=== PATIENT | male | born 1955 | race Hispanic/Latino ===

== ENCOUNTER 2022-12-04 10:57 | Emergency (ER) | payer OTHER ==
[~2022-12-04] VITALS: Ht 180.3 cm; Wt 104.3 kg
[2022-12-04 11:17] LABS: CREATININE 0.8 mg/dL (0.5-1.5)
[2022-12-04 11:18] LABS: BASOPHILS % (AUTO) 0.9 % (0.0-5.0); EOSINOPHILS % (AUTO) 3.1 % (0.0-8.0); HEMATOCRIT 42.6 % (42-54); LYMPHOCYTES % (AUTO) 31.7 % (21.0-51.0); MEAN CORPUSCULAR HEMOGLOBIN 29.8 pg (27.0-33.0); MEAN CORPUSCULAR HGB CONC 33.3 g/dL (32.0-36.0); MEAN CORPUSCULAR VOLUME 89.3 fL (79-99); MONOCYTES % (AUTO) 10.3 % (3.0-13.0); NEUTROPHILS % (AUTO) 53.8 % (40.0-77.0); PLATELET COUNT (AUTO) 149 K/uL (130-400); RED BLOOD CELL COUNT(AUTO) 4.77 MIL/uL (4.50-6.20); WHITE BLOOD COUNT (AUTO) 4.6 K/uL (4.8-10.8)
[2022-12-04 11:22] LABS: ALBUMIN 3.9 g/dL (3.5-5.0); MAGNESIUM 1.9 mg/dL (1.80-2.40); TOTAL PROTEIN, SERUM 7.4 g/dL (6.0-8.3)
[2022-12-04] MEDS ORDERED: ASPIRIN 81MG CHEW TAB PO ONE (11:30)
[2022-12-04 11:33] LABS: B-TYPE NATRIURETIC PEPTIDE 26 pg/mL (0-100)
[2022-12-04] MEDS ORDERED: IOHEXOL-350 75 ML VIAL IV ONE (12:07)
[2022-12-04] MEDS ORDERED: IOHEXOL 350 MG/ML 100ML INFUS..BTL IV ONE (12:08)
[2022-12-04 13:00] VITALS: BP 126/74
[2022-12-04] MEDS ORDERED: NAPR500T6 PO (13:48)
== END 2022-12-04 14:45 | disposition home or self-care (01) ==
LOC: EDH 10:57
DX: R07.89 Other chest pain (principal); E11.9 Type 2 diabetes mellitus without complications; E78.00 Pure hypercholesterolemia, unspecified
CPT/HCPCS: 99285; 71275; 71045; 83735; 84484; 80053; 83880; 85025; 85378; 36415; 93005; Q9967